=== PATIENT | male | born 1990 | race African-American/Black ===

== ENCOUNTER 2017-03-23 21:22 | Emergency (ER) | payer MEDICAID ==
[~2017-03-23] VITALS: Ht 180.3 cm; Wt 88.0 kg
[2017-03-24 00:10] VITALS: BP 121/70
== END 2017-03-24 00:16 | disposition home or self-care (01) ==
LOC: ER 22:20
DX: T16.2XXA Foreign body in left ear, initial encounter (principal); W45.8XXA Other foreign body or object entering through skin, initial encounter; Y93.89 Activity, other specified; Y92.89 Other specified places as the place of occurrence of the external cause; Y99.8 Other external cause status
CPT/HCPCS: 69209; 99282; X7700

== ENCOUNTER 2017-03-28 11:34 | Emergency (ER) | payer MEDICAID ==
[~2017-03-28] VITALS: Ht 177.8 cm; Wt 80.0 kg
[2017-03-28] MEDS ORDERED: IBUPROFEN 600MG TABLET PO ONE (17:30)
[2017-03-28] MEDS ORDERED: IBUPROFEN 800MG TABLET PO ONE (18:15)
[2017-03-28 18:47] VITALS: BP 133/91
== END 2017-03-28 18:56 | disposition home or self-care (01) ==
LOC: ER 12:45
DX: H60.8X2 Other otitis externa, left ear (principal)
CPT/HCPCS: 99283